=== PATIENT | female | born 1955 | race Caucasian/White ===

== ENCOUNTER 2021-05-05 19:13 | Inpatient (IN) | payer OTHER ==
[~2021-05-05] VITALS: Ht 167.6 cm; Wt 138.8 kg
[2021-05-06 10:30] VITALS: BP 141/73
[2021-05-06] MEDS ORDERED: OMEP20CA15 PO (10:59)
[2021-05-06] MEDS ORDERED: LISI1TAB29 PO (10:59)
[2021-05-06] MEDS ORDERED: ESCI5TAB PO (10:59)
[2021-05-06] MEDS ORDERED: SIME80TA15 PO (11:00)
--- NOTE | 2021-05-06 11:00 | NUR ---
PAPIER MACHE MOLDER NOTES RECEIVED PT FROM [facility] VIA AMBULANCE, ACCOMPANIED BY AMBULANCE PERSONNEL VIA [facility], ASSISTED TO BED, MADE COMFORTABLE, ROOM SET UP ORIENTATION PROVIDED TO PT, VERBALIZED UNDERSTANDING, NO COMPLAINT OF PAIN AT THIS TIME, RESPIRATIONS NORMAL, PLACED ON O2 AT 4LPM VIA NASAL CANNULA, WITH O2 SAT OF 94%, NOTED WITH PRODUCTIVE COUGH, KEPT LIVESTOCK SPECULATOR BED, AWAITING ADMITTING ORDERS FROM MD, PT REFUSED SKIN ASSESSMENT AND WANTED TO BE LEFT ALONE TO SLEEP STATED "DONT BOTHER ME, I WANT TO SLEEP". PT ON SINUS RHYTHM ON THE TELE MONITOR. VITALS TAKEN AND RECORDED.
[2021-05-06] MEDS ORDERED: MAGNESIUM HYDROXIDE 30 ML UDC PO PRN (12:30)
[2021-05-06] MEDS ORDERED: SIMETHICONE 80 MG TAB.CHEW PO PRN (12:30)
[2021-05-06] MEDS ORDERED: ACETAMINOPHEN 325 MG TABLET PO PRN (12:30)
[2021-05-06] MEDS ORDERED: ZOLPIDEM TARTRATE 5 MG TABLET PO PRN (12:30)
[2021-05-06] MEDS ORDERED: MAG HYDROX/AL HYDROX/SIMETH 30 ML UDC PO PRN (12:30)
[2021-05-06] MEDS ORDERED: Z GUARD REMEDY 2 OZ OINT TP PRN (12:30)
[2021-05-06] MEDS ORDERED: ONDANSETRON HCL/PF 4 MG/2 ML VIAL IVP PRN (12:30)
[2021-05-06] MEDS: HYDROCODONE/APAP 5/325MG TABLET PO PRN (14:19)
[2021-05-06] MEDS: CEFTRIAXONE 1 G in IV D5W 50 ML IV SCH (14:57)
[2021-05-06 16:00] VITALS: BP 126/59
[2021-05-06] MEDS: AZITHROMYCIN 250 MG TABLET PO SCH (18:58)
--- NOTE | 2021-05-06 19:00 | NUR ---
GLOBAL ANALYTICS HEAD NOTES PT IN BED, AWAKE, ALERT AND ABLE TO MAKE NEEDS KNOWN, REFUSED SKIN ASSESSMENT AND PHOTOS, STARTED ON IV AND PO ATB, PM CARE PROVIDED, PAIN MEDS GIVEN ORDERED, NO BEHAVIOR PROBLEM NOTED AT THIS TIME, NEEDS ATTENDED.
[2021-05-06 20:00] VITALS: BP 136/82
--- NOTE | 2021-05-06 20:00 | NUR ---
RN NOTES Received pt. awake on bed, a/ox3, with period of confusion, SR on tele monitor HR-72, patient refused skin assessment but noticed bilateral legs edema and discoloration, ambulate with assist, no SOB, call light within reach, siderailsupx2, will continue to monitor
--- NOTE | 2021-05-06 20:38 | NUR ---
RN NOTES Complained of hedache_tylenol 650mg po given as ordered
[2021-05-07] VITALS: BP_SYST 137; BP_SYST 161; BP_DIAS 100; BP_DIAS 75
[2021-05-07 04:00] VITALS: BP 156/46
[2021-05-07 05:00] VITALS: BP 156/46
--- NOTE | 2021-05-07 05:08 | NUR ---
RN NOTES Complained of constipation-Milk of Magnesia 30ml was given
[2021-05-07 06:05] LABS: CREATININE 0.9 mg/dL (0.6-1.3); MAGNESIUM 2.6 mg/dL (1.8-2.4); PHOSPHORUS 2.8 mg/dL (2.5-4.9)
[2021-05-07 06:14] LABS: BASOPHILS # (AUTO) 0.1 K/uL (0.0-0.2); BASOPHILS % (AUTO) 0.6 % (0.0-2.0); EOSINOPHILS % (AUTO) 1.2 % (0.0-6.0); HEMATOCRIT 37 % (33-45); HEMOGLOBIN 11.9 g/dL (11.5-14.8); LYMPHOCYTES # (AUTO) 0.9 K/uL (0.8-4.8); LYMPHOCYTES % (AUTO) 8.8 % (20.0-44.0); MEAN CORPUSCULAR HGB CONC 32 g/dl (31.0-36.0); MEAN CORPUSCULAR VOLUME 85 fL (82-100); MONOCYTES # (AUTO) 0.6 K/uL (0.1-1.30); MONOCYTES % (AUTO) 6.2 % (2.0-12.0); NEUTROPHILS # (AUTO) 8.1 K/uL (1.8-8.9); NEUTROPHILS % (AUTO) 83.2 % (43.0-81.0); PLATELET COUNT (AUTO) 400 K/uL (150-450); RED BLOOD CELL COUNT(AUTO) 4.33 MIL/uL (4.0-5.2); WHITE BLOOD COUNT (AUTO) 9.8 K/uL (4.3-11.0)
--- NOTE | 2021-05-07 06:35 | NUR ---
RN NOTES Awake, denies pain, no SOB, morning care rendered, call light within reach, siderailsupx2, pt. needs attended
[2021-05-07] MEDS: PANTOPRAZOLE 40 MG TABLET.DR PO SCH (07:31)
[2021-05-07] MEDS: HYDROCODONE/APAP 5/325MG TABLET PO PRN ×2 (07:31→17:10)
--- NOTE | 2021-05-07 07:46 | NUR ---
TELE/RN OPENING NOTES RECEIVED PATIENT ON BED AWAKE ALERT AND ORIENTED X3 WITH EPISODE OF CONFUSION. PATIENT IN 4L OXYGEN SATURATING WELL. PATIENT IN NO APPARENT RESPIRATORY DISTRESS NOTED AT THIS TIME. TELE MONITOR READING SINUS RHYTHM 90 BPM. COMPLAINED OF GENERALIZED PAIN RATED 8 NORCO 5/325MG 1 TAB P.O. WILL CONTINUE TO MONITOR.
--- NOTE | 2021-05-07 07:53 | NUR ---
TELE/RN NOTES DR. BRENNER ORDER LOVENOX 40 MG DAILY. NOTED AND CARRIED OUT.
[2021-05-07 08:00] VITALS: BP 140/80
[2021-05-07] MEDS: LISINOPRIL (20MG) 20 MG TABLET PO SCH (08:19)
[2021-05-07] MEDS: HYDROCHLOROTHIAZIDE 25 MG TABLET PO SCH (08:19)
[2021-05-07] MEDS: ESCITALOPRAM OXALATE (10 MG) 10 MG TABLET PO SCH (08:20)
[2021-05-07] MEDS ORDERED: Medication Not On Formulary EA (Lisinopril/Hydrochlorothiazide (Lisinopril-Hctz 20-25 Mg PO SCH (09:00)
[2021-05-07] MEDS ORDERED: OMEPRAZOLE 20 MG CAPSULE.DR PO SCH (09:00)
[2021-05-07] MEDS: ENOXAPARIN SODIUM 40 MG/0.4 ML DISP.SYRIN SQ SCH (09:14)
--- NOTE | 2021-05-07 09:26 | NUR ---
TELE/RN NOTES BP 178/104 PULSE 93 WAS AWARE, ROUTINE BLOOD PRESSURE MEDICATIONS WAS GIVEN. WILL CONTINUE OT MONITOR.
--- NOTE | 2021-05-07 10:27 | NUR ---
TELE/RN NOTES BP 163/88 PULSE 74. NO COMPLAINED OF PAIN AND NO APPARENT RESPIRATORY DISTRESS NOTED. WILL CONTINUE TO MONITOR.
--- NOTE | 2021-05-07 11:20 | NUR ---
TELE/RN NOTES PATIENT IS ALERT AND ORIENTED X3. PATIENT IN NO APPARENT RESPIRATORY DISTRESS NOTED. NO COMPLAINED OF PAIN. DESIGN TECHNICIAN BY [employer].
[2021-05-07] MEDS ORDERED: IOHEXOL-350 100 ML VIAL IV ONE (11:24)
[2021-05-07] MEDS ORDERED: IV NS 0.9% 250 ML IV ONE (11:24)
--- NOTE | 2021-05-07 11:46 | NUR ---
SS Consult: SS Consult requested for possible SI. The pt. is a 66-year-old female. Per charge nurse, pt. was brought in from [place] where she was previously on a hold for GD. Per charge hold was broken, however, concerns of SI. MATHEUS met with pt. bedside. The pt. is A&O x 4 and makes good eye contact.Pt. appears well groomed. Pt.s mood is dysphoric, pt. is irritable, guarded, defensive. MATHEUS explored pt.s mental health Hx. Pt. states she has never been diagnosed with a mental illness. Pt. states she is currently on antidepressants and could not provide name of medication. Pt. denies current SI/HI and denies hallucinations. The pt. is heavy set and states that she is independent with her ADLs and no caregiver. Pt. states she lives alone at home [[id number] [facility] [address]]. Per pt. she would like to be discharged to home when ready. Pt. stated she plans to have her best friend stay with her for a little bit for support. Pt. states her support system also includes her son, Cristiano Mondragon [phone]. Pt. states she is , receives SSI. MATHEUS asked pt. is she needs any DME st home or resources and pt. refused. MATHEUS provided pt. with mental health resources and pt. refused them stating I have a lot of money, I dont need resources. MATHEUS discussed with charge nurse, Cherise.Mental health resources placdin chart to be included in discharge packet. SW will be available as needed. Counseling--Outpatient resources include: [facility] [address] [facility] [place] [place] [address] (Specializes in in-depth psychotherapy for emotional distress: anxiety, depression, interpersonal conflicts, life transitions, childhood abuse) [facility] [address] [place] [address] (Assist with solving problem marital difficulties, separation & divorce, aging parents, & grief, chronic & terminal illness) [facility] [address] [place] [address] (Deal with loss & grief, anxiety, marital difficulties) [facility]ental Health [facility] [address] [facility] [address] [place] [address] (Provide in-home mental services to people who are incapable of leaving their homes) [facility] [address] [place] [address] [facility] [address] [place] [address] PSYCHIATRIC OUTPATIENT SERVICES [facility] Partial Hospitalization and Intensive Outpatient Program (Managed Care and [place] Only) [address] [facility]. [facility] [place] [address]; [phone] [facility] Partial Hospitalization and Outpatient Program [address] [facility] [address] [place] [address]; [phone] [facility] Partial Hospitalization and Outpatient Program [address] [place] [address]; [phone] [facility] [id number] [facility] [place], [place] [phone] [facility] Partial Hospitalization and Outpatient [address] [place], [place] ; [phone] ;[phone] [facility] [address] [place], [place] [id number] Mental Health Services [facility] [address] [place] [address] Services: Outpatient therapy for children, teens, young adults, adults, older adults, and families; Psychiatric services, medication support [place] Crisis and Hotline Telephone Numbers: 24-Hour service unless stated [place] Mental Health/Crisis Line........[phone] Suicide Prevention Center (24 Hours).......[phone] Suicide Prevention Crisis Center.......[phone] (24 Hours) Alcoholics Anonymous (24 Hours)..........[phone] National Crisis Hotlines: Alcohol and Drug Helpline - Provides referrals to local facilities where adolescents and adults can seek help. Brief intervention. [facility] Helpline National [place] [facility] 8-922-932-CGEJ National Youth Crisis Hotline [facility]. Provides free information on specific disorders, referral directory to mental health providers, national directory of local mental health associations (M-F, 9-5 EST) National [place] of Mental Health Information Line: Provide sinformation and literature on mental illness by disorder-for professionals and general public.
--- NOTE | 2021-05-07 11:48 | NUR ---
TELE/RN NOTES PATIENT IS ALERT AND ORIENTED X3. PATIENT IN NO APPARENT RESPIRATORY DISTRESS NOTED. NO COMPLAINED OF PAIN. PATIENT CAME BACK. PATIENT REFUSED TO FINISH THE COMPUTED TOMOGRAPHY PULMONARY ANGIOGRAM. PATIENT WAS SCREAMING AND SHOUTING PER CRISTOBAL THE LABORATORY MANAGER. Addendum: 05/07/21 at 1202 by JALEN HULL RN DUPLICATE
--- NOTE | 2021-05-07 11:48 | NUR ---
TELE/RN NOTES PATIENT IS ALERT AND ORIENTED X3. PATIENT IN NO APPARENT RESPIRATORY DISTRESS NOTED. NO COMPLAINED OF PAIN. PATIENT CAME BACK. PATIENT REFUSED TO FINISH THE COMPUTED TOMOGRAPHY PULMONARY ANGIOGRAM. PATIENT WAS SCREAMING AND SHOUTING PER CRISTOBAL THE MARKETING SYSTEMS ANALYST. DR. MIDDLETON WAS AWARE. WILL CONTINUE TO MONITOR.
--- NOTE | 2021-05-07 12:24 | NUR ---
TELE/RN NOTES DR. MIDDLETON ORDER ATIVAN 0.5 MG IV PUSH ONE TIME, NOTED AND CARRIED OUT.
[2021-05-07] MEDS ORDERED: LORAZEPAM INJ 2 MG/ML VIAL IV ONE (12:30)
--- NOTE | 2021-05-07 14:39 | NUR ---
TELE/RN NOTES DR. BRENNER ORDER MIDLINE INSERTION. NOTED AND CARRIED OUT.
[2021-05-07] MEDS ORDERED: ALPRAZOLAM 0.25 MG TABLET PO PRN (15:30)
[2021-05-07] MEDS: ALPRAZOLAM 0.25 MG TABLET PO PRN ×2 (15:41→23:49)
[2021-05-07 16:00] VITALS: BP 145/78
[2021-05-07] MEDS: GABAPENTIN 100 MG CAPSULE PO SCH ×2 (17:07→21:05)
[2021-05-07] MEDS: AZITHROMYCIN 250 MG TABLET PO SCH (17:07)
[2021-05-07] MEDS: CEFTRIAXONE 1 G in IV D5W 50 ML IV SCH (17:12)
--- NOTE | 2021-05-07 17:53 | NUR ---
TELE/RN NOTES 1730 BP 169/95 PULSE 96 1745 BP 165/94 PULSE [address] 96% DR. BRENNER WAS AWARE. NO NEW ORDER AT THIS TIME.
--- NOTE | 2021-05-07 18:53 | NUR ---
TELE/RN OPENING NOTES PATIENT IS ON BED AWAKE ALERT AND ORIENTED X3 WITH EPISODE OF ANXIETY. PATIENT IN 4L OXYGEN SATURATION 97%. PATIENT IN NO APPARENT RESPIRATORY DISTRESS NOTED. NO COMPLAINED OF PAIN AT THIS TIME. TELE MONITOR READING SINUS WITH PAC 97BPM. IV ACCESS AT RIGHT UPPER ARM MIDLINE #18 G PATENT AND INTACT. SEEN AND EXAMINED BY MD WITH ORDERS MADE AND CARRIED OUT. ALL DUE MEDICATIONS WAS GIVEN. SAFETY PRECAUTIONS WAS IN PLACED. BED IN LOWEST POSITION AND LOCKED. CAFETERIA COUNTER ATTENDANT UP X2. CALL LIGHT WITHIN REACH. LATEST BP 155/91 PULSE 97. WILL ENDORSED TO BARREL CLEANER FOR ALPHONSE.
--- NOTE | 2021-05-07 19:45 | NUR ---
QUILL COLLECTOR NOTES RECEIVED LYING COMFORTABLY ON BED,BREATHING REGULAR,NOT IN ANY FORM OF DISTRESS,APPEARS CALM AND RELAX.SALINE LOCK LEFT AC INTACT AND PATENT.ST 105 ON TELE MONITOR.CALL LIGHT IN REACH,NEEDS ANTICIPATED.
[2021-05-07 20:00] VITALS: BP_SYST 161; BP_DIAS 65; BP_DIAS 68
--- NOTE | 2021-05-07 22:30 | NUR ---
GAMBRELER NOTES PER PATIENT SHE ACCIDENTALLY SLIDE HER LEFT FOOT ON BEDSIDE TABLE AND HURT HIS NAIL WITH SLIGHT BLEEDING NOTED.CLEAN AND KEPT DRY.HOSPITALIST GABY HERNANDEZ MADE AWARE,WITH NEW ORDER FOR LEFT FOOT X-RAY,JUST TO MAKE SURE THERE'S NO FRACTURE.
--- NOTE | 2021-05-07 23:15 | NUR ---
SUPERVISOR DRIED YEAST NOTES X-RAY TECH AT BEDSIDE
--- NOTE | 2021-05-07 23:49 | NUR ---
FLORICULTURIST NOTES FEELING ANXIOUS,XANAX 0.5MG PO GIVEN ORDERED FOR ANXIETY.
[2021-05-08] VITALS: BP 161/100
--- NOTE | 2021-05-08 02:40 | NUR ---
ORTHOPEDIC SHOES SALESPERSON NOTES BLOOD PRESSURE 161/100,ASYMPTOMATIC,SLEEPING,HOSPITALIST GABY MADE AWARE WITH NEW ORDER NOTED AWAITING FOR PHARMACY TO VERIFIED.
[2021-05-08] MEDS ORDERED: CLONIDINE HCL 0.1 MG TABLET PO PRN (03:00)
[2021-05-08 04:00] VITALS: BP 172/84
[2021-05-08] MEDS: HYDROCODONE/APAP 5/325MG TABLET PO PRN ×3 (04:20→22:14)
--- NOTE | 2021-05-08 04:20 | NUR ---
DIGITIZER NOTES C/O PAIN ON LEFT FOOT 6/10 ON PAIN SCALE,NORCO 5/325MG,1 TAB PO GIVEN ORDERED.
--- NOTE | 2021-05-08 04:30 | NUR ---
SQUAD LEADER NOTES BLOOD PRESSURE 172/84,PULSE 82,MEDICATED WITH CLONIDINE 0.1MG PO ORDERED FOR SBP>160.
[2021-05-08 05:00] VITALS: BP 172/84
[2021-05-08 05:47] LABS: BASOPHILS # (AUTO) 0.1 K/uL (0.0-0.2); BASOPHILS % (AUTO) 0.6 % (0.0-2.0); EOSINOPHILS % (AUTO) 0.6 % (0.0-6.0); HEMATOCRIT 37 % (33-45); HEMOGLOBIN 11.8 g/dL (11.5-14.8); LYMPHOCYTES % (AUTO) 9.1 % (20.0-44.0); MEAN CORPUSCULAR HGB CONC 32 g/dl (31.0-36.0); MEAN CORPUSCULAR VOLUME 83 fL (82-100); MONOCYTES # (AUTO) 0.7 K/uL (0.1-1.30); MONOCYTES % (AUTO) 6.9 % (2.0-12.0); NEUTROPHILS # (AUTO) 8.9 K/uL (1.8-8.9); NEUTROPHILS % (AUTO) 82.8 % (43.0-81.0); PLATELET COUNT (AUTO) 423 K/uL (150-450); WHITE BLOOD COUNT (AUTO) 10.8 K/uL (4.3-11.0)
[2021-05-08 05:59] LABS: CALCIUM, SERUM 9.1 mg/dL (8.5-10.1); POTASSIUM 3.7 mmol/L (3.5-5.1)
--- NOTE | 2021-05-08 06:30 | NUR ---
FARM EQUIPMENT MECHANIC NOTES CALM AND QUIET THRU OUT SHIFT,PAIN MANAGEMENT EFFECTIVE,ANXIETY IMPROVED.FOR REPEAT CT ANGIO PULMONARY TODAY,PROCEDURE UNSUCCESSFUL YESTERDAY,PATIENT UNCOOPERATIVE DURING THE PROCEDURE.IN NO ACUTE DISTRESS.
[2021-05-08 08:00] VITALS: BP 148/91
[2021-05-08] MEDS ORDERED: LORAZEPAM INJ 2 MG/ML VIAL IV ONE ×2 (08:00→13:30)
--- NOTE | 2021-05-08 08:00 | NUR ---
RN OPENING NOTE PT AWAKE IN BED RESTING. A/O X3 AND GEORGIAN SPEAKING. NO COMPLAINT OF PAIN OR NAUSEA PRESENT. ANXIETY PRESENT. ON RA WITH NO SOB OR RESPIRATORY DISTRESS PRESENT. PAINT BRUSH MAKER PRESENT. PT IS AMBULATORY WITH ASSISTANCE AND BATHROOM PRIVILEGES. L BIG TOE HEMATOMA PRESENT. WOUND PICTURES IN CHART AND ADVANCED MANUFACTURING ENGINEER NOTIFIED. IV PRESENT ON SANTOS MIDLINE AND FLUSHES WELL. LABS AND ORDERS REVIEWED. SAFETY MEASURES IN PLACE. SIDE RAILS RAISED. BED LOWERED. CALL LIGHT WITHIN REACH. WILL CONTINUE TO MONITOR.
[2021-05-08] MEDS ORDERED: IV NS 0.9% 250 ML IV ONE (08:02)
[2021-05-08] MEDS ORDERED: IOHEXOL-350 100 ML VIAL IV ONE (08:02)
[2021-05-08] MEDS: LISINOPRIL (20MG) 20 MG TABLET PO SCH (09:00)
[2021-05-08] MEDS: HYDROCHLOROTHIAZIDE 25 MG TABLET PO SCH (09:00)
[2021-05-08] MEDS: ESCITALOPRAM OXALATE (10 MG) 10 MG TABLET PO SCH (09:01)
[2021-05-08] MEDS: GABAPENTIN 100 MG CAPSULE PO SCH ×4 (09:01→21:58)
[2021-05-08] MEDS: PANTOPRAZOLE 40 MG TABLET.DR PO SCH (09:01)
[2021-05-08] MEDS: ENOXAPARIN SODIUM 40 MG/0.4 ML DISP.SYRIN SQ SCH (09:09)
[2021-05-08 09:31] LABS: BAND % (MANUAL) 1 % (0.0-5.0); EOSINOPHILS % (MANUAL) 2 % (0-4); LYMPHOCYTES % (MANUAL) 8 % (16-48); METAMYELOCYTES % 1 % (0-0); MONOCYTES % (MANUAL) 9 % (0-11.0); MYELOCYTES % 1 % (0-0); NEUTROPHILS % (MANUAL) 78 (42-76)
--- NOTE | 2021-05-08 09:54 | NUR ---
WOUND CARE CONSULT: PT SLEEPING SOUNDLY. PER RN, PT NOT TO BE DISTURBED AT THIS TIME. REVIEWED CHART, NURSING DOCUMENTATION AND PHOTO WHICH INDICATES DISCOLORATION TO GREAT TOE. DR SAMAYOA NOTIFIED OF DPM CONSULT REQUEST. DISCUSSED WITH NURSING STAFF AND AIR VICE MARSHAL. PT IS AMBULATORY AND INDPENDENT WITH BED MOBILITY PER NURSING STAFF. WILL SEE PRN.
[2021-05-08] MEDS ORDERED: LIDOCAINE 1% INJ 50 ML MDV IJ ONE (13:00)
[2021-05-08] MEDS ORDERED: SILVER NITRATE APPLICATOR 1 EA BOX TP STA (13:40)
[2021-05-08] MEDS: CEFTRIAXONE 1 G in IV D5W 50 ML IV SCH (14:25)
[2021-05-08 16:09] VITALS: BP 164/81
[2021-05-08] MEDS: AZITHROMYCIN 250 MG TABLET PO SCH (17:00)
--- NOTE | 2021-05-08 18:52 | NUR ---
RN CLOSING NOTE PT AWAKE IN BED RESTING. A/O X3 AND LITHUANIAN SPEAKING. NO COMPLAINT OF PAIN OR NAUSEA PRESENT. ON RA WITH NO SOB OR RESPIRATORY DISTRESS PRESENT. GASOLINE ENGINE INSPECTOR PRESENT. NO EDEMA PRESENT. PT IS AMBULATORY WITH ASSISTANCE AND BATHROOM PRIVILEGES. L BIG TOE HEMATOMA PRESENT. WOUND PICTURES IN CHART. WOUND CARE PLAN TO COVER WITH XEROFORM AND KERLIX. IV PRESENT ON SANTOS MIDLINE AND FLUSHES WELL. ROUTINE MEDS GIVEN. LABS AND ORDERS REVIEWED. SAFETY MEASURES IN PLACE. SIDE RAILS RAISED. BED LOWERED. CALL LIGHT WITHIN REACH. REPORT TO BE GIVEN TO NIGHT NURSE FOR ALPHONSE.
--- NOTE | 2021-05-08 19:50 | NUR ---
TELERN ASLEEP, PROVIDED QUIET ENVI. TO CONTINUE.
[2021-05-08 20:00] VITALS: BP 138/83
--- NOTE | 2021-05-08 22:00 | NUR ---
TELERN SEEN TRYING TO GET OUT OF BED.. ASSISTED TO RESTROOM, REFUSED BSC. HFR, UNSTEADY GAIT ABLE TO GO RESTROOM WITH ASSISTANCE, VOIDED FREELY. STATED CAN WALK ON HER OWN, PATIENT HAS UNSTEADY GAIT. STATED FEELS BETTER TODAY THAN YESTERDAY. SAFETY PRECAUTIONS EMPHASIZED APPEARS TO UNDERSTAND. REMINDED TO CALL STAFF FOR ASSISTANCE OR FURTHER DISCOMFORTS. LEFT FOOT DRESSING WITH MINIMUM BLOODY DRAINAGE. MONITORED. ELEVATED LEFT FOOT ON PILLOWS WHILE ON BED.DUE MEDS ADMINISTERED, OFFERED PAIN MED TOOK 1 TAB OF NORCO FOR FOOT PAIN.
[2021-05-09] VITALS: BP 146/80
--- NOTE | 2021-05-09 00:20 | NUR ---
TELERN SLEEPING APPEARS COMFORTABLE. EASILY AWAKENED WHEN CALLED. NO OTHER NEEDS MADE.
[2021-05-09 04:00] VITALS: BP 149/75
[2021-05-09] MEDS: HYDROCODONE/APAP 5/325MG TABLET PO PRN (05:32)
--- NOTE | 2021-05-09 05:32 | NUR ---
TELERN AWAKENED WITH PAIN ON LEFT FOOT. NORCO 1 TAB PO ADMINISTERD ORDERED.COMPLETE BEDREST FOR NOW
[2021-05-09 05:47] LABS: BASOPHILS # (AUTO) 0.1 K/uL (0.0-0.2); BASOPHILS % (AUTO) 0.6 % (0.0-2.0); EOSINOPHILS % (AUTO) 1.4 % (0.0-6.0); HEMATOCRIT 37 % (33-45); HEMOGLOBIN 11.8 g/dL (11.5-14.8); LYMPHOCYTES # (AUTO) 0.9 K/uL (0.8-4.8); MEAN CORPUSCULAR HGB CONC 33 g/dl (31.0-36.0); MEAN CORPUSCULAR VOLUME 83 fL (82-100); MONOCYTES # (AUTO) 0.7 K/uL (0.1-1.30); MONOCYTES % (AUTO) 7.1 % (2.0-12.0); NEUTROPHILS # (AUTO) 8.2 K/uL (1.8-8.9); NEUTROPHILS % (AUTO) 81.9 % (43.0-81.0); PLATELET COUNT (AUTO) 428 K/uL (150-450); RED BLOOD CELL COUNT(AUTO) 4.37 MIL/uL (4.0-5.2)
[2021-05-09 06:46] LABS: CALCIUM, SERUM 8.6 mg/dL (8.5-10.1); CREATININE 0.9 mg/dL (0.6-1.3); POTASSIUM 3.9 mmol/L (3.5-5.1)
--- NOTE | 2021-05-09 07:00 | NUR ---
TELERN WEIGHT 290 LBS. RESTING QUIETLY. ENDORSED TO INCOMING RN
[2021-05-09 07:45] VITALS: BP 122/70
--- NOTE | 2021-05-09 07:57 | NUR ---
RN OPENING NOTE PT SLEEPING IN BED. AROUSES TO NAME. A/O X4 AND [place] SPEAKING. CURRENTLY ON 2L NC WITH NO SOB OR RESPIRATORY DISTRESS PRESENT. ON ASSISTANT BROKER. NO EDEMA PRESENT. SELF AMBULATORY WITH BATHROOM PRIVILEGES. L GREATER TOE WOUND PRESENT AND WOUND PICTURES IN CHART. WOUND CARE TO BE GIVEN. MIDLINE PRESENT ON L UA AND FLUSHES WELL. LABS AND ORDERS REVIEWED. SAFETY MEASURES IN PLACE. SIDE RIALS RAISED. BED LOWERED. CALL LIGHT WITHIN REACH. WILL CONTINUE TO MONITOR.
[2021-05-09] MEDS: ENOXAPARIN SODIUM 40 MG/0.4 ML DISP.SYRIN SQ SCH (08:22)
[2021-05-09] MEDS: ESCITALOPRAM OXALATE (10 MG) 10 MG TABLET PO SCH (08:26)
[2021-05-09] MEDS: HYDROCHLOROTHIAZIDE 25 MG TABLET PO SCH (08:26)
[2021-05-09] MEDS: GABAPENTIN 100 MG CAPSULE PO SCH ×4 (08:26→21:19)
[2021-05-09] MEDS: ALPRAZOLAM 0.25 MG TABLET PO PRN ×2 (08:26→17:07)
[2021-05-09] MEDS: PANTOPRAZOLE 40 MG TABLET.DR PO SCH (08:26)
[2021-05-09] MEDS: LISINOPRIL (20MG) 20 MG TABLET PO SCH (08:27)
--- NOTE | 2021-05-09 10:15 | NUR ---
RN NOTE PT WEANED OFF OF 4L O2 PER MD ORDER. PT O2 SAT OF 96%. NO SOB OR RESPIRATORY DISTRESS NOTED. WILL CONTINUE TO MONITOR
--- NOTE | 2021-05-09 11:15 | NUR ---
RN NOTE PT WEANED OFF OF 2L O2 VIA NC. ON RA. NO SOB OR RESPIRATORY DISTRESS NOTED. O2 SAT OF 97%. WILL CONTINUE TO MONITOR.
[2021-05-09] MEDS: CEFTRIAXONE 1 G in IV D5W 50 ML IV SCH (14:18)
[2021-05-09 16:00] VITALS: BP 149/90
[2021-05-09] MEDS: AZITHROMYCIN 250 MG TABLET PO SCH (17:07)
--- NOTE | 2021-05-09 17:50 | NUR ---
RN CLOSING NOTE PT RESTING IN BED. AROUSES TO NAME. A/O X4 AND GERMAN SPEAKING. NO COMPLAINT OF PAIN OR NAUSEA PRESENT. ON RA WITH NO SOB OR RESPIRATORY DISTRESS PRESENT. RESEARCH PHYSIOLOGIST PRESENT. NO EDEMA PRESENT. PT IS AMBULATORY WITH ASSISTANCE AND BATHROOM PRIVILEGES. L BIG TOE HEMATOMA PRESENT. WOUND PICTURES IN CHART. WOUND CARE GIVEN. IV PRESENT ON SANTOS MIDLINE AND FLUSHES WELL. ROUTINE MEDS GIVEN. LABS AND ORDERS REVIEWED. SAFETY MEASURES IN PLACE. SIDE RAILS RAISED. BED LOWERED. CALL LIGHT WITHIN REACH. REPORT TO BE GIVEN TO NIGHT NURSE FOR ALPHONSE.
--- NOTE | 2021-05-09 19:11 | NUR ---
LASER BEAM CUTTER: CONTINUITY OF CARE Patient in bed, sleeping arouses easily, no c/o pain. Sinus rhythm HR 90 in the Tele monitor. SONDRA Cadet. Left toe with dry gauze. Fall precaution maintained. Addendum: 05/09/21 at 2142 by GUIDO NEGRO RN CLARIFICATION: SANTOS Cadet.
[2021-05-09 19:49] VITALS: BP 124/75
[2021-05-09 20:00] VITALS: BP 121/75
[2021-05-10] VITALS (7 sets, daily range): BP systolic 103–124; BP diastolic 63–74
[2021-05-10] MEDS: ALPRAZOLAM 0.25 MG TABLET PO PRN ×3 (03:56→20:37)
--- NOTE | 2021-05-10 03:58 | NUR ---
WAITER/WAITRESS: PATIENT REQUEST Patient request anxiety medication. Denies sob but request Oxygen via NC to be placed on. Oxygen sat 94% on room air. Given Xanax as per patient request and Oxygen 2L via NC for comfort breathing.
--- NOTE | 2021-05-10 06:13 | NUR ---
HOSPITAL ADMINISTRATOR: END OF SHIFT REPORT Patient is A/O x3. Sinus Rhythm with PAC HR 63 in the Tele monitor. SANTOS midline intact. On IV Rocephin, afebrile. Reported anxiety managed with requested Xanax by patient, denies sob. Surgical shoe when ambulating as planned, no c/o pain. Fall precaution maintained. Will endorse to oncoming RN.
[2021-05-10 06:40] LABS: BASOPHILS % (AUTO) 0.4 % (0.0-2.0); EOSINOPHILS % (AUTO) 2.2 % (0.0-6.0); HEMATOCRIT 39 % (33-45); HEMOGLOBIN 12.5 g/dL (11.5-14.8); LYMPHOCYTES # (AUTO) 1.3 K/uL (0.8-4.8); LYMPHOCYTES % (AUTO) 11.2 % (20.0-44.0); MEAN CORPUSCULAR HGB CONC 32 g/dl (31.0-36.0); MEAN CORPUSCULAR VOLUME 84 fL (82-100); MONOCYTES # (AUTO) 0.7 K/uL (0.1-1.30); MONOCYTES % (AUTO) 6.1 % (2.0-12.0); NEUTROPHILS # (AUTO) 9.3 K/uL (1.8-8.9); NEUTROPHILS % (AUTO) 80.1 % (43.0-81.0); PLATELET COUNT (AUTO) 431 K/uL (150-450); RED BLOOD CELL COUNT(AUTO) 4.62 MIL/uL (4.0-5.2); WHITE BLOOD COUNT (AUTO) 11.6 K/uL (4.3-11.0)
[2021-05-10 06:48] LABS: CALCIUM, SERUM 8.6 mg/dL (8.5-10.1); CREATININE 1.4 mg/dL (0.6-1.3)
--- NOTE | 2021-05-10 07:10 | NUR ---
MANAGER DATA OPENING NOTES RECEIVED PATIENT IN BED, ASLEEP BUT EASILY AROUSABLE. PATIENT IS ALERT AND ORIENTED X 4, ABLE TO MAKE NEEDS KNOWN. ON TELE MONITOR WITH SINUS RHYTHM AT 63 WITH SOME PAC. ON ROOM AIR WITH NO RESPIRATORY DISTRESS BUT PATIENT WANTS OXYGEN SUPPLEMENTATION AT NIGHT WITH 2LPM VIA NASAL CANULA. WITH MIDLINE ON LEFT UPPER ARM ON SALINE LOCK. COMFORT MEASURES PROVIDED. NO COMPLAINT OF PAIN AT THIS TIME. SAFETY PRECAUTIONS IN PLACED. BED LOCKED ON LOWEST POSITION, CALL LIGHT WITHIN REACH. WILL CONTINUE TO MONITOR PATIENT.
[2021-05-10] MEDS: PANTOPRAZOLE 40 MG TABLET.DR PO SCH (09:22)
[2021-05-10] MEDS: GABAPENTIN 100 MG CAPSULE PO SCH ×4 (09:22→20:36)
[2021-05-10] MEDS: HYDROCHLOROTHIAZIDE 25 MG TABLET PO SCH (09:23)
[2021-05-10] MEDS: ESCITALOPRAM OXALATE (10 MG) 10 MG TABLET PO SCH (09:24)
[2021-05-10] MEDS: LISINOPRIL (20MG) 20 MG TABLET PO SCH (09:24)
[2021-05-10] MEDS: ENOXAPARIN SODIUM 40 MG/0.4 ML DISP.SYRIN SQ SCH (09:30)
--- NOTE | 2021-05-10 14:20 | NUR ---
RN NOTE PATIENT IS MEDICALLY CLEARED PER DR. BRENNER. SPOKE TO VALERIA AND FAXED FACESHEET TO GPS FOR ASSESSMENT FOR IN-PSYCH ADMISSION.
[2021-05-10] MEDS: CEFTRIAXONE 1 G in IV D5W 50 ML IV SCH (16:33)
[2021-05-10] MEDS: HYDROCODONE/APAP 5/325MG TABLET PO PRN (17:08)
--- NOTE | 2021-05-10 18:55 | NUR ---
BILLET HEADER CLOSING NOTES RECEIVED PATIENT IN BED, ASLEEP BUT EASILY AROUSABLE. PATIENT IS ALERT AND ORIENTED X 4, ABLE TO MAKE NEEDS KNOWN. ON ROOM AIR WITH NO RESPIRATORY DISTRESS WITH EVEN AND UNLABORED BREATHING. WITH MIDLINE ON LEFT UPPER ARM ON SALINE LOCK. COMFORT MEASURES PROVIDED. NO COMPLAINT OF PAIN AT THIS TIME. SAFETY PRECAUTIONS IN PLACED. BED LOCKED ON LOWEST POSITION, CALL LIGHT WITHIN REACH. WILL ENDORSE PATIENT FOR CONTINUITY OF CARE.
--- NOTE | 2021-05-10 19:33 | NUR ---
MS RN NOTES RECEIVED PATIENT IN BED, AWAKE BUT EASILY AROUSABLE. PATIENT IS ALERT AND ORIENTED X 4, ABLE TO MAKE NEEDS KNOWN. ON ROOM AIR WITH NO RESPIRATORY DISTRESS REPORTED RO NOTED AT THIS TIME. WITH MIDLINE ON LEFT UPPER ARM ON SALINE LOCK. COMFORT MEASURES PROVIDED. NO COMPLAINT OF PAIN AT THIS TIME. SAFETY PRECAUTIONS IN PLACED. BED LOCKED ON LOWEST POSITION, CALL LIGHT WITHIN REACH. WILL CONTINUE TO MONITOR PATIENT.
--- NOTE | 2021-05-11 05:22 | NUR ---
MS RN NOTES PT REFUSED WOUND PICTURES WANTED TO BE LEFT ALONE WILL ENDORSE TO DAY SHIFT.
[2021-05-11 06:01] LABS: BASOPHILS # (AUTO) 0.1 K/uL (0.0-0.2); BASOPHILS % (AUTO) 0.5 % (0.0-2.0); EOSINOPHILS % (AUTO) 2.9 % (0.0-6.0); HEMATOCRIT 40 % (33-45); HEMOGLOBIN 12.7 g/dL (11.5-14.8); LYMPHOCYTES # (AUTO) 1.5 K/uL (0.8-4.8); LYMPHOCYTES % (AUTO) 11.1 % (20.0-44.0); MEAN CORPUSCULAR HGB CONC 32 g/dl (31.0-36.0); MEAN CORPUSCULAR VOLUME 84 fL (82-100); MONOCYTES % (AUTO) 6.9 % (2.0-12.0); NEUTROPHILS # (AUTO) 10.9 K/uL (1.8-8.9); NEUTROPHILS % (AUTO) 78.6 % (43.0-81.0); PLATELET COUNT (AUTO) 392 K/uL (150-450); RED BLOOD CELL COUNT(AUTO) 4.72 MIL/uL (4.0-5.2); WHITE BLOOD COUNT (AUTO) 13.8 K/uL (4.3-11.0)
[2021-05-11 06:13] LABS: CALCIUM, SERUM 8.4 mg/dL (8.5-10.1); CREATININE 2.3 mg/dL (0.6-1.3); POTASSIUM 3.8 mmol/L (3.5-5.1)
--- NOTE | 2021-05-11 06:36 | NUR ---
MS RN NOTES PATIENT IN BED, ASLEEP BUT EASILY AROUSABLE. PATIENT IS ALERT AND ORIENTED X 4, ABLE TO MAKE NEEDS KNOWN. ON ROOM AIR WITH NO RESPIRATORY DISTRESS REPORTED RO NOTED AT THIS TIME. WITH MIDLINE ON LEFT UPPER ARM ON SALINE LOCK. COMFORT MEASURES PROVIDED. NO COMPLAINT OF PAIN AT THIS TIME. ALL DUE MEDS GIVEN PRN MED PROVIDED NEEDED.SAFETY PRECAUTIONS IN PLACED. BED LOCKED ON LOWEST POSITION, CALL LIGHT WITHIN REACH. WILL ENDORSE CARE TO DAY SHIFT.
--- NOTE | 2021-05-11 07:05 | NUR ---
RN OPENING NOTE RECEIVED PT SLEEPING IN BED, EASILY AROUSED. A/O X4. ON ROOM AIR, NO SOB NOTED. IN NO APPARENT DISTRESS. DENIES ANY PAIN OR DISCOMFORT AT THIS TIME. IV ACCESS ON SANTOS MIDLINE, INTACT. SAFETY MEASURES MAINTAINED. BED IN LOWEST POSITION, BRAKES LOCKED. SIDE RAILS UP X2. CALL LIGHT WITHIN REACH. WILL CONTINUE PLAN OF CARE.
[2021-05-11 08:00] VITALS: BP 133/71
[2021-05-11] MEDS: ESCITALOPRAM OXALATE (10 MG) 10 MG TABLET PO SCH (08:09)
[2021-05-11] MEDS: HYDROCHLOROTHIAZIDE 25 MG TABLET PO SCH (08:09)
[2021-05-11] MEDS: LISINOPRIL (20MG) 20 MG TABLET PO SCH (08:09)
[2021-05-11] MEDS: GABAPENTIN 100 MG CAPSULE PO SCH ×4 (08:09→20:12)
[2021-05-11] MEDS: PANTOPRAZOLE 40 MG TABLET.DR PO SCH (08:09)
[2021-05-11] MEDS: ENOXAPARIN SODIUM 40 MG/0.4 ML DISP.SYRIN SQ SCH (08:11)
[2021-05-11] MEDS: ALPRAZOLAM 0.25 MG TABLET PO PRN ×2 (08:23→18:44)
[2021-05-11] MEDS: HYDROCODONE/APAP 5/325MG TABLET PO PRN ×2 (08:24→18:39)
--- NOTE | 2021-05-11 09:06 | NUR ---
RN NOTE PATIENT DESATTING AT 86% ON RA. PUT THE PT BACK ON 2L NC, WENT UP TO 97%. WILL CONTINUE TO MONITOR THROUGHOUT THE SHIFT.
[2021-05-11 11:16] LABS: BASOPHILS # (AUTO) 0.1 K/uL (0.0-0.2); BASOPHILS % (AUTO) 0.7 % (0.0-2.0); EOSINOPHILS % (AUTO) 2.7 % (0.0-6.0); HEMATOCRIT 41 % (33-45); LYMPHOCYTES # (AUTO) 1.8 K/uL (0.8-4.8); LYMPHOCYTES % (AUTO) 13.4 % (20.0-44.0); MEAN CORPUSCULAR HGB CONC 32 g/dl (31.0-36.0); MEAN CORPUSCULAR VOLUME 84 fL (82-100); MONOCYTES # (AUTO) 0.7 K/uL (0.1-1.30); MONOCYTES % (AUTO) 5.2 % (2.0-12.0); NEUTROPHILS # (AUTO) 10.5 K/uL (1.8-8.9); PLATELET COUNT (AUTO) 416 K/uL (150-450); RED BLOOD CELL COUNT(AUTO) 4.86 MIL/uL (4.0-5.2); WHITE BLOOD COUNT (AUTO) 13.5 K/uL (4.3-11.0)
[2021-05-11 12:08] LABS: CALCIUM, SERUM 8.3 mg/dL (8.5-10.1); CREATININE 2.5 mg/dL (0.6-1.3); POTASSIUM 3.8 mmol/L (3.5-5.1)
--- NOTE | 2021-05-11 13:25 | NUR ---
RN NOTE PATIENT DESATTING AT 86% ON RA AT REST. PUT THE PT BACK ON 2L NC, WENT UP TO 97%. WILL CONTINUE TO MONITOR THROUGHOUT THE SHIFT.
[2021-05-11] MEDS: CEFTRIAXONE 1 G in IV D5W 50 ML IV SCH (14:28)
[2021-05-11 16:00] VITALS: BP 103/50
--- NOTE | 2021-05-11 18:11 | NUR ---
RN OPENING NOTE PATIENT RESTING IN BED. A/O X4. ON 2L NC, SATURATING AT 96%. NO SOB NOTED. NO S/S OF RESPIRATORY DISTRESS. IV ACCESS ON SANTOS MIDLINE, INTACT AND PATENT. ALL DUE MEDS GIVEN ORDERED. ALL NEEDS HAVE BEEN MET AND ATTENDED. SAFETY MEASURES MAINTAINED. BED IN LOWEST POSITION, BRAKES LOCKED. SIDE RAILS UP X2. KEPT CALL LIGHT WITHIN REACH. WILL ENDORSE CONTINUITY OF CARE TO ONCOMING SHIFT. Addendum: 05/11/21 at 1817 by SHI RAYGOZA RN CORRECTION: RN CLOSING NOTE
--- NOTE | 2021-05-11 19:11 | NUR ---
MS RN NOTES PATIENT RESTING IN BED. A/O X4. ON 2L NC, SATURATING AT 96%. NO SOB NOTED. NO S/S OF RESPIRATORY DISTRESS. IV ACCESS ON SANTOS MIDLINE, INTACT AND PATENT. ALL DUE MEDS GIVEN ORDERED. ALL NEEDS HAVE BEEN MET AND ATTENDED AT THIS TIME. SAFETY MEASURES MAINTAINED. BED IN LOWEST POSITION, BRAKES LOCKED. SIDE RAILS UP X2. KEPT CALL LIGHT WITHIN REACH. WILL CONTINUE TO MONITOR.
[2021-05-11 20:00] VITALS: BP 105/69
[2021-05-11 21:13] LABS: ABG OXYGEN SATURATION 84.7 % (92.0-98.5); ABG PCO2 54.1 mmHg (35.0-45.0); ABG PH 7.395 (7.350-7.450); AaDO2 31.9 mmHg; COHb 0.3 % (0.5-1.5); MetHb 0.4 % (0.0-1.5); O2Hb 84.1 % (94.0-97.0); SITE, ABG Right Radial; VENT MODE, BG Room Air
--- NOTE | 2021-05-11 21:20 | NUR ---
RT NOTE (LATE ENTRY) Pt rec'd on 2lnc, awake and alert. Shows no signs of resp distress or shortness of breath. Pt placed on ROOM AIR and ABG taken per md orders. Pt unable to maintain O2 saturation > 88% on Room Air. Pt placed back on 2lnc. Results given to RN. Will continue to monitor closely.
[2021-05-12 06:32] LABS: BASOPHILS # (AUTO) 0.1 K/uL (0.0-0.2); BASOPHILS % (AUTO) 0.7 % (0.0-2.0); EOSINOPHILS % (AUTO) 3.8 % (0.0-6.0); HEMATOCRIT 38 % (33-45); HEMOGLOBIN 12.1 g/dL (11.5-14.8); LYMPHOCYTES # (AUTO) 1.9 K/uL (0.8-4.8); LYMPHOCYTES % (AUTO) 14.6 % (20.0-44.0); MEAN CORPUSCULAR HGB CONC 32 g/dl (31.0-36.0); MEAN CORPUSCULAR VOLUME 84 fL (82-100); MONOCYTES # (AUTO) 0.7 K/uL (0.1-1.30); MONOCYTES % (AUTO) 5.1 % (2.0-12.0); NEUTROPHILS # (AUTO) 9.9 K/uL (1.8-8.9); NEUTROPHILS % (AUTO) 75.8 % (43.0-81.0); PLATELET COUNT (AUTO) 364 K/uL (150-450); RED BLOOD CELL COUNT(AUTO) 4.54 MIL/uL (4.0-5.2)
[2021-05-12 07:03] LABS: ALBUMIN 2.7 g/dL (3.4-5.0); BILIRUBIN,TOTAL 0.3 mg/dL (0.2-1.0); CALCIUM, SERUM 8.3 mg/dL (8.5-10.1); CREATININE 2.4 mg/dL (0.6-1.3); MAGNESIUM 3.3 mg/dL (1.8-2.4); PHOSPHORUS 6.6 mg/dL (2.5-4.9); POTASSIUM 3.9 mmol/L (3.5-5.1); TOTAL PROTEIN, SERUM 7.3 g/dL (6.4-8.2)
--- NOTE | 2021-05-12 08:13 | NUR ---
MS RN OPENING NOTE PATIENT IS IN BED RESTING, PATIENT IS IN NO ACUTE DISTRESS, PATIENT IS ON OXYGEN 2L VIA NC,SATURATING AT 94%. SAFETY PRECAUTIONS ARE ON, BED IS LOCKED IN THE LOWEST POSITION WITH SIDE RAILS UP, CALL LIGHT WITHIN THE REACH. WILL CONTINUE TO MONITOR CLOSELY.
[2021-05-12] MEDS: PANTOPRAZOLE 40 MG TABLET.DR PO SCH (08:26)
[2021-05-12] MEDS: ESCITALOPRAM OXALATE (10 MG) 10 MG TABLET PO SCH (08:27)
[2021-05-12] MEDS: GABAPENTIN 100 MG CAPSULE PO SCH ×4 (08:27→20:45)
[2021-05-12] MEDS: ENOXAPARIN SODIUM 40 MG/0.4 ML DISP.SYRIN SQ SCH (08:29)
--- NOTE | 2021-05-12 08:41 | NUR ---
MS RN NOTE PATIENT USED BEDSIDE COMMODE, PATIENT HAD A LITTLE MOVEMENT ONCE SHE WAS DONE USING THE BEDSIDE COMMODE. PATIENT STATING SHE HAD A FALL. PATIENT DID NOT HAVE A FALL. AND NO INJURIES NOTED.
[2021-05-12] MEDS: HYDROCODONE/APAP 5/325MG TABLET PO PRN ×2 (08:50→19:40)
[2021-05-12 11:36] LABS: BILIRUBIN,URINE SMALL (NEGATIVE); COLOR,URINE YELLOW (YELLOW); LEUKOCYTE ESTERASE ,URINE NEGATIVE (NEGATIVE); NITRITE, URINE NEGATIVE (NEGATIVE); PH,URINE 5.5 (5.0-8.0); PROTEIN,URINE 100 mg/dl (NEGATIVE); UGLUCOSE NEGATIVE (NEGATIVE); UROBILINOGEN,URINE 0.2 EU/dL (0.2)
[2021-05-12 12:16] LABS: BACTERIA,URINE Few /HPF (None Seen); SQUAMOUS EPITHELIAL CELL,UR Many /HPF (None Seen)
[2021-05-12 12:40] LABS: CREATININE, URINE 311.2 MG/DL (30.0-125.0)
[2021-05-12] MEDS: ALPRAZOLAM 0.25 MG TABLET PO PRN (13:18)
[2021-05-12 14:59] LABS: EOSINOPHIL,URINE Rare
[2021-05-12] MEDS: CEFTRIAXONE 1 G in IV D5W 50 ML IV SCH (15:47)
[2021-05-12] MEDS ORDERED: IV NS 0.9% 1,000 ML IV ONE (16:30)
--- NOTE | 2021-05-12 18:55 | NUR ---
MS RN CLOSING NOTE PATIENT IS IN BED RESTING, PATIENT IS IN NO ACUTE DISTRESS, PATIENT IS ON OXYGEN 2L VIA NC,SATURATING AT 94%. PATIENT MENTALLY IS NOT STABLE. SAFETY PRECAUTIONS ARE ON, BED IS LOCKED IN THE LOWEST POSITION WITH SIDE RAILS UP, CALL LIGHT WITHIN THE REACH. ENDORSE PATIENT TO SENIOR MILITARY ANALYST NURSE FOR ALPHONSE.
--- NOTE | 2021-05-12 19:31 | NUR ---
MS RN OPENING PATIENT IN BED. A/OX4. NO S/S OF APPARENT DISTRESS, TOLERATING 2L OF O2 VIA NC. C/O PAIN AT THE MOMENT. IV NS RUNNING @ 100 ML/HR. SAFETY IN PLACE: BED IN LOWEST, LOCKED POSITION. CALL LIGHT WITHIN REACH. WILL CONTINUE TO MONITOR. Addendum: 05/12/21 at 1943 by KAJAL XIONG RN MS RN OPENING PATIENT IN BED. A/OX4. NO S/S OF APPARENT DISTRESS, TOLERATING 4L* OF O2 VIA NC. C/O PAIN AT THE MOMENT. IV NS RUNNING @ 100 ML/HR. SAFETY IN PLACE: BED IN LOWEST, LOCKED POSITION. CALL LIGHT WITHIN REACH. WILL CONTINUE TO MONITOR.
--- NOTE | 2021-05-12 19:41 | NUR ---
MS RN NOTE PATIENT C/O 6/10 PAIN. GIVEN NORCO 5/325. WILL REASSESS.
[2021-05-12 20:00] VITALS: BP 92/55
[2021-05-12 20:21] VITALS: BP 92/55
[2021-05-12] MEDS: HEPARIN SODIUM, PORCINE 5000 UNITS/1 ML VIAL SQ SCH (20:46)
--- NOTE | 2021-05-13 01:31 | NUR ---
MS RN NOTES PATIENT ASKED FOR XANAX @2200. PULLED OUT THE MEDICATION AND PATIENT CHANGED CONDITION NOT NEEDING XANAX ANYMORE. RETURNED 2 TABS IN [place].
--- NOTE | 2021-05-13 06:25 | NUR ---
MS RN CLOSING NOTE PATIENT IN BED WITH EYES CLOSED, EASY TO AROUSE. A/OX4. NO S/S OF APPARENT DISTRESS TOLERATING 4LPM OF O2 VIA NC. PAIN MANAGED WITH MEDICATIONS. NO IV FLUIDS RUNNING RAJENDRA. DRESSING DRY, CLEAN, AND INTACT. SAFETY KEPT IN PLACE THE WHOLE SHIFT: BED IN LOWEST, LOCKED POSITION. CALL LIGHT WITHIN REACH. ALL NEEDS ATTENDED. ALL SCHED MEDS ADMINISTERED. -- MRSA SWAB ORDERED AND COLLECTED. WILL ENDORSE CARE TO MORNING RN.
[2021-05-13 06:28] LABS: BASOPHILS # (AUTO) 0.2 K/uL (0.0-0.2); BASOPHILS % (AUTO) 1.4 % (0.0-2.0); EOSINOPHILS % (AUTO) 4.3 % (0.0-6.0); HEMATOCRIT 40 % (33-45); HEMOGLOBIN 12.5 g/dL (11.5-14.8); LYMPHOCYTES # (AUTO) 2.3 K/uL (0.8-4.8); LYMPHOCYTES % (AUTO) 18.3 % (20.0-44.0); MEAN CORPUSCULAR HGB CONC 31 g/dl (31.0-36.0); MEAN CORPUSCULAR VOLUME 85 fL (82-100); MONOCYTES # (AUTO) 0.8 K/uL (0.1-1.30); MONOCYTES % (AUTO) 6.3 % (2.0-12.0); NEUTROPHILS # (AUTO) 8.7 K/uL (1.8-8.9); NEUTROPHILS % (AUTO) 69.7 % (43.0-81.0); PLATELET COUNT (AUTO) 334 K/uL (150-450); RED BLOOD CELL COUNT(AUTO) 4.73 MIL/uL (4.0-5.2); WHITE BLOOD COUNT (AUTO) 12.5 K/uL (4.3-11.0)
[2021-05-13 07:07] LABS: PTH, INTACT 170 pg/mL (15-65)
[2021-05-13 07:16] LABS: CALCIUM, SERUM 8.4 mg/dL (8.5-10.1); CREATININE 2.9 mg/dL (0.6-1.3); MAGNESIUM 3.4 mg/dL (1.8-2.4); PHOSPHORUS 5.9 mg/dL (2.5-4.9); POTASSIUM 4.2 mmol/L (3.5-5.1)
--- NOTE | 2021-05-13 07:38 | NUR ---
MS RN OPENING NOTE PATIENT IS IN BED RESTING/SLEEPING, PATIENT IS IN NO ACUTE DISTRESS, PATIENT IS ON OXYGEN 2L VIA NC,SATURATING WELL. SAFETY PRECAUTIONS ARE ON, BED IS LOCKED IN THE LOWEST POSITION WITH SIDE RAILS UP, CALL LIGHT WITHIN THE REACH. WILL CONTINUE TO MONITOR CLOSELY.
[2021-05-13] MEDS: PANTOPRAZOLE 40 MG TABLET.DR PO SCH (09:10)
[2021-05-13] MEDS: GABAPENTIN 100 MG CAPSULE PO SCH ×4 (09:10→20:48)
[2021-05-13] MEDS: ESCITALOPRAM OXALATE (10 MG) 10 MG TABLET PO SCH (09:10)
[2021-05-13] MEDS: HEPARIN SODIUM, PORCINE 5000 UNITS/1 ML VIAL SQ SCH ×2 (09:15→20:49)
[2021-05-13] MEDS: CEFTRIAXONE 1 G in IV D5W 50 ML IV SCH (15:36)
[2021-05-13] MEDS: ALPRAZOLAM 0.25 MG TABLET PO PRN (15:37)
[2021-05-13 16:00] VITALS: BP 103/54
--- NOTE | 2021-05-13 19:00 | NUR ---
RN NOTES Received patient awake on her, bed, a/ox3, denies pain, no SOB< call light within reach, siderailsupx2, will continue to monitor Addendum: 05/14/21 at 0457 by ALLY DUMONT RN RIGHT TIME 1929
--- NOTE | 2021-05-13 19:33 | NUR ---
MS RN CLOSING NOTE PATIENT IS IN BED RESTING/SLEEPING, PATIENT IS IN NO ACUTE DISTRESS, PATIENT IS ON OXYGEN 2L VIA NC, SATURATING WELL. SAFETY PRECAUTIONS ARE ON, BED IS LOCKED IN THE LOWEST POSITION WITH SIDE RAILS UP, CALL LIGHT WITHIN THE REACH. ENDORSE PATIENT TO CONTRACT MANAGER NURSE FOR ALPHONSE.
[2021-05-13 20:00] VITALS: BP 107/48
[2021-05-13] MEDS ORDERED: IV NS 0.9% 1,000 ML IV ONE (22:00)
[2021-05-14] MEDS: HYDROCODONE/APAP 5/325MG TABLET PO PRN (05:51)
--- NOTE | 2021-05-14 05:53 | NUR ---
RN NOTES COMPLAINED OF RIGHT ARM PAIN AND PATIEN ASK FOR NORCO- NOROC 5/325MG PO GIVEN ORDERED, V/S STABLE
--- NOTE | 2021-05-14 06:24 | NUR ---
RN NOTES Sleeping but arousable, no pain noted, no SOB, call light within reach, siderailsupx2, pt. needs attended
[2021-05-14 06:25] LABS: BASOPHILS # (AUTO) 0.2 K/uL (0.0-0.2); BASOPHILS % (AUTO) 1.2 % (0.0-2.0); EOSINOPHILS % (AUTO) 3.9 % (0.0-6.0); HEMATOCRIT 39 % (33-45); HEMOGLOBIN 12.4 g/dL (11.5-14.8); LYMPHOCYTES # (AUTO) 2.3 K/uL (0.8-4.8); LYMPHOCYTES % (AUTO) 18.9 % (20.0-44.0); MEAN CORPUSCULAR HGB CONC 31 g/dl (31.0-36.0); MEAN CORPUSCULAR VOLUME 85 fL (82-100); MONOCYTES # (AUTO) 0.5 K/uL (0.1-1.30); MONOCYTES % (AUTO) 4.3 % (2.0-12.0); NEUTROPHILS # (AUTO) 8.9 K/uL (1.8-8.9); NEUTROPHILS % (AUTO) 71.7 % (43.0-81.0); PLATELET COUNT (AUTO) 361 K/uL (150-450); RED BLOOD CELL COUNT(AUTO) 4.63 MIL/uL (4.0-5.2); WHITE BLOOD COUNT (AUTO) 12.4 K/uL (4.3-11.0)
--- NOTE | 2021-05-14 07:20 | NUR ---
RN OPENING NOTE RECEIVED PATIENT SLEEPING IN BED, EASILY AROUSABLE. A/O X3. NC ON 4 LPM. NO SOB NOTED. NO S/S OF RESPIRATORY DISTRESS. IV ACCESS ON [place], INTACT AND PATENT. SAFETY MEASURES MAINTAINED. BED IN LOWEST POSITION, BRAKES LOCKED. SIDE RAILS UP X2. CALL LIGHT WITHIN REACH. WILL CONTINUE PLAN OF CARE.
[2021-05-14 07:35] LABS: CALCIUM, SERUM 8.4 mg/dL (8.5-10.1); CREATININE 1.9 mg/dL (0.6-1.3); MAGNESIUM 3.3 mg/dL (1.8-2.4); PHOSPHORUS 4.2 mg/dL (2.5-4.9); POTASSIUM 4.4 mmol/L (3.5-5.1)
[2021-05-14 08:00] VITALS: BP 117/52
[2021-05-14 08:07] LABS: *SPE A/G RATIO 0.7 (0.7-1.7); *SPE ALBUMIN 2.8 g/dL (2.9-4.4); *SPE ALPHA-1-GLOBULIN 0.3 g/dL (0.0-0.4); *SPE ALPHA-2-GLOBULIN 1.1 g/dL (0.4-1.0); *SPE BETA GLOBULIN 1.2 g/dL (0.7-1.3); *SPE GLOBULIN, TOTAL 3.8 g/dL (2.2-3.9); *SPE M-SPIKE Not Observed g/dL (Not Observed); *SPEGAMMA GLOBULIN 1.3 g/dL (0.4-1.8)
[2021-05-14] MEDS: GABAPENTIN 100 MG CAPSULE PO SCH ×2 (09:47→12:01)
[2021-05-14] MEDS: HEPARIN SODIUM, PORCINE 5000 UNITS/1 ML VIAL SQ SCH (09:47)
[2021-05-14] MEDS: ESCITALOPRAM OXALATE (10 MG) 10 MG TABLET PO SCH (09:48)
[2021-05-14] MEDS ORDERED: LEVO500T90 PO (11:35)
[2021-05-14] MEDS ORDERED: ASPI-1498 PO (11:37)
[2021-05-14] MEDS ORDERED: GABA100C PO (11:37)
--- NOTE | 2021-05-14 15:20 | NUR ---
RN NOTE: DISCHARGE PATIENT DISCHARGED. HEALTH TEACHING AND DISCHARGE INSTRUCTIONS GIVEN. VERBALIZED UNDERSTANDING. GAVE INSTRUCTIONS WELL TO THE SON DEN. PICKED UP THE PT VIA PRIVATE TRANSPORTATION. ACCOMPANIED DOWN BY CAROLANN MCGRATH VIA WHEELCHAIR. REMOVED ID [id number] AND IV ACCESS.
== END 2021-05-14 15:20 | disposition home health service (06) | DRG 177 ==
LOC: TELE 05-06 10:19 → MED 05-10 08:42
PROVIDERS: ADMIT Family Medicine; ATTEND Nurse Practitioner Acute Care
PROC: 05HC33Z Insertion of Infusion Device into Left Basilic Vein, Percutaneous Approach (ICD-10-PCS; 2021-05-07)
PROC: 05HF33Z Insertion of Infusion Device into Left Cephalic Vein, Percutaneous Approach (ICD-10-PCS; 2021-05-07)
PROC: 0HDRXZZ Extraction of Toe Nail, External Approach (ICD-10-PCS; principal; 2021-05-08)
PROC: 0H9RXZZ Drainage of Toe Nail, External Approach (ICD-10-PCS; 2021-05-08)
DX: J15.6 Pneumonia due to other Gram-negative bacteria (principal); J96.01 Acute respiratory failure with hypoxia; N17.0 Acute kidney failure with tubular necrosis; F33.1 Major depressive disorder, recurrent, moderate; J90 Pleural effusion, not elsewhere classified; R45.851 Suicidal ideations; E66.2 Morbid (severe) obesity with alveolar hypoventilation; J69.0 Pneumonitis due to inhalation of food and vomit; J15.9 Unspecified bacterial pneumonia; K21.9 Gastro-esophageal reflux disease without esophagitis; S90.212A Contusion of left great toe with damage to nail, initial encounter; F41.9 Anxiety disorder, unspecified; W22.8XXA Striking against or struck by other objects, initial encounter; E11.40 Type 2 diabetes mellitus with diabetic neuropathy, unspecified; D63.8 Anemia in other chronic diseases classified elsewhere; K58.9 Irritable bowel syndrome, unspecified; I10 Essential (primary) hypertension; F41.0 Panic disorder [episodic paroxysmal anxiety]; F19.10 Other psychoactive substance abuse, uncomplicated; Z73.6 Limitation of activities due to disability; G89.4 Chronic pain syndrome; E86.0 Dehydration; F17.200 Nicotine dependence, unspecified, uncomplicated; Z80.1 Family history of malignant neoplasm of trachea, bronchus and lung; F39 Unspecified mood [affective] disorder; T50.8X5A Adverse effect of diagnostic agents, initial encounter; Y92.9 Unspecified place or not applicable
CPT/HCPCS: 36415; 36600; 71045-TC; 73630-TC; 76770-TC; 80048-TC; 80053-TC; 80061-TC; 81001; 82550-TC; 82570-TC; 83735-TC; 83970; 84100-TC; 84155; 84155-TC; 84165; 84300-TC; 85025-TC; 85378-TC; 87081-TC; 87086-TC; G0378; J0696; J1644; J1650; J2060; J3490; J7030; J7050; J7060; Q9967